=== PATIENT | male | born 1995 | race Caucasian/White ===

== ENCOUNTER 2024-06-10 14:16 | Emergency (ER) | payer BC, MEDICAID ==
[~2024-06-10] VITALS: Ht 165.1 cm; Wt 136.0 kg
[2024-06-10 14:19] VITALS: BP 128/84; PULSE 89; RESP 15; O2SAT 98
[2024-06-10] MEDS ORDERED: ACETAMINOPHEN 325MG TABLET PO STA (17:22)
[2024-06-10 18:13] LABS: CLARITY URINE CLEAR (CLEAR); COLOR URINE YELLOW (YELLOW); GLUCOSE URINE NEGATIVE (NEGATIVE); KETONES URINE NEGATIVE (NEGATIVE); LEUKOCYTE ESTERASE URINE NEGATIVE (NEGATIVE); NITRITE URINE NEGATIVE (NEGATIVE); OCCULT BLOOD URINE NEGATIVE (NEGATIVE); PH URINE 6.5 (4.5-8.0); PROTEIN URINE NEGATIVE (NEGATIVE); UROBILINOGEN URINE 0.2 E.U./dL (0.2-1.0)
[2024-06-10 20:22] LABS: BASOPHILS % 0.4 % (0.0-2.0); EOSINOPHILS % 0.3 % (0.0-5.0); HEMATOCRIT. 42.3 % (42.0-52.0); HEMOGLOBIN. 13.7 g/dL (14.0-18.0); MEAN CORPUSCULAR HEMOGLOBIN 25.9 pg (28.0-32.0); MEAN CORPUSCULAR HGB CONC 32.3 g/dL (31.0-37.0); MEAN PLATELET VOLUME 8.4 fl (7.4-10.4); MONOCYTES % 6.7 % (2.0-8.0); NEUTROPHILS % 71.6 % (40.0-76.0); PLATELET 305 x1000/uL (130-400); RED BLOOD CELL COUNT 5.28 mill/uL (4.7-6.1); RED CELL DISTRIBUTION WIDTH 16.2 % (11.6-14.6); WHITE BLOOD COUNT 14.4 x1000/uL (4.5-11.0)
[2024-06-10 20:30] LABS: CHLORIDE 107 mEq/L (98-107); POTASSIUM 3.9 mEq/L (3.5-5.1); SODIUM 141 mEq/L (136-145)
[2024-06-10 20:31] LABS: CALCIUM 9.8 mg/dL (8.7-10.4); CARBON DIOXIDE 27 mEq/L (21-32)
[2024-06-10 20:36] LABS: CREATININE 0.8 mg/dL (0.6-1.3); GLUCOSE 94 mg/dL (70-105); UREA NITROGEN BLOOD 9 mg/dL (9-23)
[2024-06-10 21:17] VITALS: TEMP 98.6
[2024-06-10] MEDS: ACETAMINOPHEN 325MG TABLET PO NR (21:17)
[2024-06-10] MEDS ORDERED: ACET-2708 MT (21:23)
[2024-06-10] MEDS ORDERED: DEXTL MT (21:23)
== END 2024-06-10 22:58 | disposition home or self-care (01) ==
LOC: ER 14:16
DX: M54.50 Low back pain, unspecified (principal); J06.9 Acute upper respiratory infection, unspecified; Z98.890 Other specified postprocedural states
CPT/HCPCS: 36415; 71045; 72100; 73502; 73590; 73610; 80048; 81003; 85025; 99284